=== PATIENT | male | born 1970 | race African-American/Black ===

== ENCOUNTER 2022-07-24 13:42 | Inpatient (IN) | payer MEDICAID, OTHER ==
[~2022-07-24] VITALS: Ht 185.4 cm; Wt 114.1 kg
[~2022-07-24 13:42] MED LIST: SEVELAMER CARBONATE 800 MG TABLET PO SCH
[2022-07-24 15:20] LABS: CHLORIDE 100 mEq/L (98-107)
[2022-07-24 15:23] LABS: EOSINOPHILS % 1.4 % (0.0-5.0); HEMATOCRIT. 26.2 % (42.0-52.0); HEMOGLOBIN. 8.9 g/dL (14.0-18.0); LYMPHOCYTES % 26.4 % (20.0-50.0); MEAN CORPUSCULAR HEMOGLOBIN 28.1 pg (28.0-32.0); MEAN CORPUSCULAR VOLUME 82.5 fL (80.0-94.0); MEAN PLATELET VOLUME 8.1 fl (7.4-10.4); MONOCYTES % 8.8 % (2.0-8.0); NEUTROPHILS % 62.4 % (40.0-76.0); PLATELET 224 x1000/uL (130-400); RED BLOOD CELL COUNT 3.18 mill/uL (4.7-6.1); RED CELL DISTRIBUTION WIDTH 13.7 % (11.6-14.6)
[2022-07-24 18:20] VITALS: BP 131/72
[2022-07-24 20:00] VITALS: BP 108/61
[2022-07-24] MEDS ORDERED: ONDANSETRON HCL 4MG/2ML INJ IV PRN (20:15)
[2022-07-24 21:49] LABS: PROTHROMBIN TIME 10.8 sec (9.6-11.0)
[2022-07-24 22:46] LABS: HEPATITIS B SURFACE ANTIGEN NEGATIVE
[2022-07-24] MEDS ORDERED: VIT1TABL62 PO (23:06)
[2022-07-24] MEDS ORDERED: AMLO10TA80 PO (23:06)
[2022-07-24 23:14] VITALS: BP 131/72
[2022-07-25] VITALS (20 sets, daily range): BP systolic 100–162; BP diastolic 43–85
[2022-07-25] MEDS ORDERED: HEPARIN 1000 UNITS/ML 10ML ONE (07:26)
[2022-07-25] MEDS ORDERED: LIDOCAINE HCL/PF 1% 10 MG/ML 5ML VIAL ONE (07:27)
[2022-07-25] MEDS ORDERED: CEFAZOLIN 1000MG PREMIX 50 ML IV ONE ×2 (07:29→09:00)
[2022-07-25] MEDS ORDERED: FENTANYL CITRATE/PF 50MCG/ML 2ML VIAL ONE (07:29)
[2022-07-25 07:47] LABS: BASOPHILS % 1.1 % (0.0-2.0); EOSINOPHILS % 2.4 % (0.0-5.0); HEMATOCRIT. 24.5 % (42.0-52.0); HEMOGLOBIN. 8.3 g/dL (14.0-18.0); LYMPHOCYTES % 30.1 % (20.0-50.0); MEAN CORPUSCULAR HEMOGLOBIN 27.8 pg (28.0-32.0); MEAN PLATELET VOLUME 8.1 fl (7.4-10.4); MONOCYTES % 12.6 % (2.0-8.0); NEUTROPHILS % 53.8 % (40.0-76.0); PLATELET 204 x1000/uL (130-400); RED BLOOD CELL COUNT 2.98 mill/uL (4.7-6.1); RED CELL DISTRIBUTION WIDTH 13.3 % (11.6-14.6)
[2022-07-25] MEDS ORDERED: FENTANYL CITRATE/PF 50MCG/ML 2ML VIAL IV ONE (08:30)
[2022-07-25 08:46] LABS: PHOSPHORUS 7.5 mg/dL (2.5-4.9)
[2022-07-25] MEDS: FOLIC ACID/VITAMIN B COMP W-C TABLET PO SCH (10:28)
[2022-07-25] MEDS: AMLODIPINE 10MG TABLET PO SCH (10:29)
[2022-07-25] MEDS: SEVELAMER CARBONATE 800 MG TABLET PO SCH ×2 (12:41→18:23)
[2022-07-25] MEDS ORDERED: MANNITOL 12.5G (25%) VIAL 50ML IV NR (15:00)
[2022-07-25] MEDS ORDERED: ACETAMINOPHEN 325MG TABLET PO PRN (19:30)
[2022-07-25] MEDS ORDERED: HYDROCODONE/ACETAMINOPHEN 5/325MG TABLET PO PRN (19:30)
[2022-07-25] MEDS ORDERED: CLONIDINE 0.1MG TABLET PO PRN (19:30)
[2022-07-25] MEDS ORDERED: MAGNESIUM/ALUMINUM HYDROXIDE/SIMETHICONE 30ML UDC PO PRN (19:30)
[2022-07-25] MEDS ORDERED: NALOXONE HCL 0.4MG/ML VIAL IV PRN (19:45)
[2022-07-25] MEDS: ENOXAPARIN 40MG/0.4ML SYR SUBCUT SCH (21:30)
[2022-07-25] MEDS: EPOETIN ALFA 2,000 UNIT/ML VIAL SUBCUT SCH (21:31)
[2022-07-26] VITALS (7 sets, daily range): BP systolic 109–152; BP diastolic 61–87
[2022-07-26] MEDS: OMEPRAZOLE 20MG CAPSULE EXTENDED RELEASE PO SCH (06:37)
[2022-07-26 08:10] LABS: BASOPHILS % 0.9 % (0.0-2.0); EOSINOPHILS % 2.1 % (0.0-5.0); HEMATOCRIT. 25.8 % (42.0-52.0); HEMOGLOBIN. 8.8 g/dL (14.0-18.0); LYMPHOCYTES % 26.7 % (20.0-50.0); MEAN CORPUSCULAR HEMOGLOBIN 27.8 pg (28.0-32.0); MEAN CORPUSCULAR VOLUME 82.1 fL (80.0-94.0); MEAN PLATELET VOLUME 8.3 fl (7.4-10.4); MONOCYTES % 10.8 % (2.0-8.0); NEUTROPHILS % 59.5 % (40.0-76.0); PLATELET 200 x1000/uL (130-400); RED BLOOD CELL COUNT 3.15 mill/uL (4.7-6.1); RED CELL DISTRIBUTION WIDTH 13.4 % (11.6-14.6)
[2022-07-26 08:29] LABS: CHLORIDE 100 mEq/L (98-107)
[2022-07-26 08:42] LABS: HDL CHOLESTEROL 34 mg/dL (40-59); LDL CHOLESTEROL 105 mg/dL (5-100); PHOSPHORUS 5.9 mg/dL (2.5-4.9); TOTAL IRON BINDING CAPACITY 232 ug/dL (250-450)
[2022-07-26] MEDS ORDERED: FOLIC ACID/VITAMIN B COMP W-C TABLET PO SCH (09:00)
[2022-07-26] MEDS: FOLIC ACID/VITAMIN B COMP W-C TABLET PO SCH (09:50)
[2022-07-26] MEDS: AMLODIPINE 10MG TABLET PO SCH (09:50)
[2022-07-26] MEDS: SEVELAMER CARBONATE 800 MG TABLET PO SCH ×3 (09:54→17:42)
[2022-07-26] MEDS: FERROUS SULFATE 325MG TABLET PO SCH (17:42)
[2022-07-26] MEDS: ENOXAPARIN 40MG/0.4ML SYR SUBCUT SCH (21:24)
[2022-07-27] VITALS: BP 125/87
[2022-07-27 04:00] VITALS: BP 109/54
[2022-07-27] MEDS: OMEPRAZOLE 20MG CAPSULE EXTENDED RELEASE PO SCH (06:16)
[2022-07-27 06:21] LABS: BASOPHILS % 1.1 % (0.0-2.0); EOSINOPHILS % 2.2 % (0.0-5.0); HEMATOCRIT. 24.1 % (42.0-52.0); HEMOGLOBIN. 8.3 g/dL (14.0-18.0); LYMPHOCYTES % 34.2 % (20.0-50.0); MEAN CORPUSCULAR VOLUME 81.4 fL (80.0-94.0); MONOCYTES % 11.1 % (2.0-8.0); NEUTROPHILS % 51.4 % (40.0-76.0); PLATELET 192 x1000/uL (130-400); RED BLOOD CELL COUNT 2.97 mill/uL (4.7-6.1); RED CELL DISTRIBUTION WIDTH 13.5 % (11.6-14.6)
[2022-07-27 07:59] VITALS: BP 100/53
[2022-07-27] MEDS: FOLIC ACID/VITAMIN B COMP W-C TABLET PO SCH (08:40)
[2022-07-27] MEDS: SEVELAMER CARBONATE 800 MG TABLET PO SCH ×3 (08:40→16:34)
[2022-07-27] MEDS: AMLODIPINE 10MG TABLET PO SCH (08:40)
[2022-07-27] MEDS: FERROUS SULFATE 325MG TABLET PO SCH ×2 (08:40→16:36)
[2022-07-27] MEDS: DOCUSATE SODIUM 250MG CAPSULE PO SCH (08:40)
[2022-07-27 09:49] LABS: PHOSPHORUS 4.9 mg/dL (2.5-4.9)
[2022-07-27 11:43] VITALS: BP 118/65
[2022-07-27 16:00] VITALS: BP 123/75
[2022-07-27 20:00] VITALS: BP 128/73
[2022-07-27] MEDS: ENOXAPARIN 40MG/0.4ML SYR SUBCUT SCH (21:09)
[2022-07-27] MEDS: EPOETIN ALFA 2,000 UNIT/ML VIAL SUBCUT SCH (21:09)
[2022-07-28] VITALS (11 sets, daily range): BP systolic 102–136; BP diastolic 53–77
[2022-07-28] MEDS: OMEPRAZOLE 20MG CAPSULE EXTENDED RELEASE PO SCH (06:08)
[2022-07-28 07:21] LABS: BASOPHILS % 0.9 % (0.0-2.0); EOSINOPHILS % 2.7 % (0.0-5.0); HEMATOCRIT. 25.1 % (42.0-52.0); HEMOGLOBIN. 8.7 g/dL (14.0-18.0); LYMPHOCYTES % 28.3 % (20.0-50.0); MEAN CORPUSCULAR HEMOGLOBIN 28.9 pg (28.0-32.0); MEAN CORPUSCULAR VOLUME 82.8 fL (80.0-94.0); MEAN PLATELET VOLUME 7.6 fl (7.4-10.4); MONOCYTES % 11.5 % (2.0-8.0); NEUTROPHILS % 56.6 % (40.0-76.0); PLATELET 199 x1000/uL (130-400); RED BLOOD CELL COUNT 3.03 mill/uL (4.7-6.1); RED CELL DISTRIBUTION WIDTH 13.5 % (11.6-14.6)
[2022-07-28] MEDS: FERROUS SULFATE 325MG TABLET PO SCH (08:17)
[2022-07-28] MEDS: SEVELAMER CARBONATE 800 MG TABLET PO SCH ×2 (08:17→12:24)
[2022-07-28] MEDS: DOCUSATE SODIUM 250MG CAPSULE PO SCH (08:18)
[2022-07-28] MEDS: FOLIC ACID/VITAMIN B COMP W-C TABLET PO SCH (08:18)
[2022-07-28] MEDS: AMLODIPINE 10MG TABLET PO SCH (08:19)
[2022-07-28] MEDS ORDERED: CALCITRIOL 0.25MCG CAPSULE PO SCH (09:00)
[2022-07-28] MEDS ORDERED: CALC0.253 PO (15:17)
[2022-07-28] MEDS ORDERED: SEVE800T8 PO (15:17)
[2022-07-28] MEDS ORDERED: NEPVIT PO (15:17)
[2022-07-28] MEDS ORDERED: FERR-63 PO (15:17)
[2022-07-28] MEDS ORDERED: AMLO10TA80 PO (15:17)
[2022-07-29] MEDS ORDERED: FAMOTIDINE 20MG TABLET PO SCH (09:00)
== END 2022-07-28 18:10 | disposition home or self-care (01) | DRG 470 ==
LOC: ER 13:42 → 7EST 15:51 → EDBEDREQ 16:08 → EDBEDREQTM 16:08
PROVIDERS: ADMIT Internal Medicine; ATTEND Internal Medicine
PROC: 5A1D70Z Performance of Urinary Filtration, Intermittent, Less than 6 Hours Per Day (ICD-10-PCS; principal; 2022-07-25)
PROC: 0JH63XZ Insertion of Tunneled Vascular Access Device into Chest Subcutaneous Tissue and Fascia, Percutaneous Approach (ICD-10-PCS; 2022-07-25)
PROC: 02HV33Z Insertion of Infusion Device into Superior Vena Cava, Percutaneous Approach (ICD-10-PCS; 2022-07-25)
PROC: B5181ZA Fluoroscopy of Superior Vena Cava using Low Osmolar Contrast, Guidance (ICD-10-PCS; 2022-07-25)
PROC: 5A1D70Z Performance of Urinary Filtration, Intermittent, Less than 6 Hours Per Day (ICD-10-PCS; 2022-07-26)
PROC: 5A1D70Z Performance of Urinary Filtration, Intermittent, Less than 6 Hours Per Day (ICD-10-PCS; 2022-07-28)
DX: I12.0 Hypertensive chronic kidney disease with stage 5 chronic kidney disease or end stage renal disease (principal); N18.6 End stage renal disease; D63.1 Anemia in chronic kidney disease; I47.1 Supraventricular tachycardia; N25.81 Secondary hyperparathyroidism of renal origin; A08.4 Viral intestinal infection, unspecified; F32.A Depression, unspecified; Z20.822 Contact with and (suspected) exposure to COVID-19; M10.9 Gout, unspecified; Z99.2 Dependence on renal dialysis; Z91.15 Patient's noncompliance with renal dialysis; Z82.49 Family history of ischemic heart disease and other diseases of the circulatory system
CPT/HCPCS: 36415; 36558; 71045; 76770; 76937; 77001; 80048; 80053; 80061; 80076; 83540; 83550; 83735; 83880; 83970; 84100; 84484; 84550; 85025; 86705; 86706; 86709; 86803; 87340; 87426; 90935; 93005; 93970; 99152; 99153; 99285; C1750; C1769; C1887; C9803; J0690; J1644; J1650; J2150; J3010; J3490; L8514; G0500